=== PATIENT | male | born 1990 | race Caucasian/White ===

== ENCOUNTER 2019-08-31 03:44 | Emergency (ER) | payer SELFPAY ==
[~2019-08-31] VITALS: Ht 165.1 cm; Wt 71.0 kg
[~2019-08-31 03:44] MED LIST: SULF1TAB24 PO; [UNRECOGNIZED DRUG - OTHER]; [UNRECOGNIZED DRUG - OTHER]
[2019-08-31 03:50] VITALS: BP 128/78
[2019-08-31] MEDS ORDERED: LIDOCAINE 1% Multi-Dose 20 ML VIAL. ONE (04:14)
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
[2019-08-31] MEDS ORDERED: MORPHINE SULFATE 2 MG/ML VIAL. IV ONE (04:45)
[2019-08-31] MEDS ORDERED: ONDANSETRON PF 4 MG/2 ML VIAL. IVP ONE (04:45)
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
[2019-08-31] MEDS ORDERED: HYDROcodone/APAP 5/325MG 1 TAB TABLET PO ONE (05:30)
== END 2019-08-31 06:15 | disposition home or self-care (01) ==
LOC: ER 03:44 → EEVIPCON 03:44 → ER 06:15
DX: S61.411A Laceration without foreign body of right hand, initial encounter (principal); S00.83XA Contusion of other part of head, initial encounter; S00.431A Contusion of right ear, initial encounter; S00.432A Contusion of left ear, initial encounter; S00.33XA Contusion of nose, initial encounter; F17.200 Nicotine dependence, unspecified, uncomplicated; F14.90 Cocaine use, unspecified, uncomplicated; Z88.0 Allergy status to penicillin; Z88.1 Allergy status to other antibiotic agents; Y08.89XA Assault by other specified means, initial encounter; Y93.89 Activity, other specified; Y92.89 Other specified places as the place of occurrence of the external cause; Y99.8 Other external cause status
CPT/HCPCS: 12001; 70450; 70486; 71046; 72125; 99285